=== PATIENT | male | born 1935 | race Caucasian/White ===

== ENCOUNTER 2016-09-22 11:43 | Emergency (ER) | payer MEDICARE ==
[~2016-09-22 11:43] MED LIST: DIOVAN HC1 PO; FISH-EPA1000 MG PO; IBRUTINIB; IMBRU140C; LEVOTHYROXIN25 MCG PO; MAXIMUM D3 PO; MULTIPLE VIT PO; PRILO PO; PROBIOTIC PO; SAW PALMETTO PO; SUPER B COMP OR; VENTOLIN HFA INH; VITAMIN B-121000 MC1 SL; VITAMIN D31000 UNIT PO; ZOVIRAX400 MG PO; [UNRECOGNIZED DRUG - OTHER] PO
[2016-09-22 11:47] LABS: ASCORBIC ACID (UR NOT ORDER) NEG (NEG); BILIRUBIN, URINE NEGATIVE (NEG); ER URINALYSIS TAT 0 Hrs 18 Mins; KETONE, URINE NEGATIVE (NEG); LEUKOCYTE ESTERASE(NOT OR NEG (NEG); NITRITE (URINE) NEG (NEG); WBC (NOT ORDERED) (RFLEX) 4 (0-5)
[2016-09-22 12:04] LABS: BASOPHILS 0.5 %; BASOPHILS ABSOLUTE 0.03 10/3/uL (0.0-0.16); EOSINOPHILS ABSOLUTE 0.06 10/3/uL (0.0-0.53); ER CBC TAT 0 Hrs 08 Mins; HEMATOCRIT 36.3 % (40.0-51.0); HEMOGLOBIN 11.9 g/dL (13.6-17.8); IMMATURE GRANULOCYTES 0.5 %; IMMATURE GRANULOCYTES ABSOLUTE 0.03 10/3/uL (0.0-0.11); LYMPHOCYTES 14.8 %; LYMPHOCYTES ABSOLUTE 0.86 10/3/uL (0.67-4.30); MEAN CORPUS HGB CONC 32.8 g/dL (32.0-36.0); MEAN CORPUSCULAR HEMOGLOB 27.6 pg (26.0-34.0); MEAN CORPUSCULAR VOLUME 84.2 fL (80-100); MEAN PLATELET VOLUME 11.9 fL (9.2-13.0); MONOCYTES 13.1 %; MONOCYTES ABSOLUTE 0.76 10/3/uL (0.21-1.20); NEUTROPHILS 70.1 %; NEUTROPHILS ABSOLUTE 4.07 10/3/uL (2.02-8.40); PLATELET COUNT 178 10/3/uL (150-400); RBC DISTRIBUTION WIDTH 15.2 % (12.0-16.0); RED CELL COUNT 4.31 10/6/uL (4.7-6.1); WHITE BLOOD CELLS 5.8 10/3/uL (4.5-10.5)
[2016-09-22 12:05] LABS: MANUAL DIFF NO %
[2016-09-22 12:21] LABS: INTERNATIONAL NORMAL RATI 1.3 UNITS (-); PARTIAL THROMBO TIME 26.3 SEC (22.5-37.2)
[2016-09-22 12:22] LABS: ALKALINE PHOSPHATASE 54 U/L (45-117); BUN (BLOOD UREA NITROGEN) 24 MG/DL (6-23); CALCIUM, SERUM 8.1 MG/DL (8.5-10.4); CHEST PAIN PROFILE TAT 0 Hrs 26 Mins; CHLORIDE, SERUM 108 MMOL/L (96-112); CO2 (CARBON DIOXIDE) 26 MMOL/L (24-34); CREATININE 1.06 MG/DL (0.70-1.30); DIRECT BILIRUBIN 0.1 MG/DL (0.0-0.4); GFR AFRICAN AMERICAN 77 ML/MIN (>=60); GFR NON AFRICAN AMERICAN 66 ML/MIN (>=60); INDIRECT BILIRUBIN(NOT ORDER) 0.4 MG/DL (0.1-0.9); POTASSIUM, SERUM 5.1 MMOL/L (3.5-5.3); SGOT(AST) 13 U/L (5-40); SGPT(ALT) 16 U/L (5-65); SODIUM, SERUM 139 MMOL/L (135-148); TOTAL BILIRUBIN 0.5 MG/DL (0-1.2); TROPONIN I <0.02 NG/ML (<0.05)
[2016-09-22 12:23] LABS: ALBUMIN 2.9 G/DL (3.5-5.0); GLUCOSE, SERUM 171 MG/DL (60-99)
[2016-10-29] MEDS ORDERED: DIOVAN HC1 PO (22:19)
[2016-10-29] MEDS ORDERED: LEVOTHYROXIN25 MCG PO (22:20)
[2016-10-29] MEDS ORDERED: VITAMIN B12 TABLET PO (22:22)
[2016-10-29] MEDS ORDERED: IMBRU140C PO (22:22)
[2016-10-29] MEDS ORDERED: PRILO PO (22:22)
[2016-10-29] MEDS ORDERED: VITAMIN D PO (22:23)
[2016-10-29] MEDS ORDERED: PROBIOTIC CAPSULE PO (22:23)
[2016-10-29] MEDS ORDERED: [UNRECOGNIZED DRUG - OTHER] PO (22:23)
[2016-10-29] MEDS ORDERED: MULTIVITAMI1 PO (22:23)
[2016-10-29] MEDS ORDERED: VITAMIN B PO (22:24)
[2016-11-01] MEDS ORDERED: ELIQUIS 5 MG TAB5 MG PO (13:24)
[2016-11-01] MEDS ORDERED: LOP25 PO (13:30)
[2016-11-01] MEDS ORDERED: PRIN2.5 PO (13:33)
[2016-11-01] MEDS ORDERED: FLOMAX4 PO ×2 (13:34→13:37)
[2016-11-08] MEDS ORDERED: CORDARONE PO (17:14)
[2016-11-08] MEDS ORDERED: BETAPACE80 PO (17:14)
[2016-11-08] MEDS ORDERED: OMNICEF300 PO (17:15)
== END 2016-09-22 13:18 | disposition home or self-care (01) ==
LOC: ER 11:43
PROVIDERS: Physician Assistant
DX: R42 Dizziness and giddiness (principal); R11.0 Nausea; R91.1 Solitary pulmonary nodule; I10 Essential (primary) hypertension; Z88.8 Allergy status to other drugs, medicaments and biological substances; Z79.899 Other long term (current) drug therapy
CPT/HCPCS: 71010; 80048; 80076; 81001; 83735; 84484; 85025; 85610; 85730; 87040; 93005; 96374; 99284; J2405